=== PATIENT | female | born 1985 | race Hispanic/Latino ===

== ENCOUNTER → 2023-08-14 10:22 | Outpatient (REF) | payer OTHER, SELFPAY ==
[2023-08-14 11:14] LABS: Hematocrit 34.6 % (37.0-47.0); Hemoglobin 11.9 g/dL (12.0-16.0); Mean Corp Hgb Conc. 34.4 g/dL (33.0-37.0); Mean Corpuscular Hgb 31.2 pg (27.0-31.0); Mean Corpuscular Volume 90.8 fL (81.0-99.0); Mean Platelet Volume 10.5 fL (7.4-10.4); Platelet Count 385 10^3/uL (130-400); Red Blood Cell Count 3.81 10^6/uL (4.20-5.40); Red Cell Dist. Width 13.7 % (11.5-14.5)
[2023-08-14 12:15] LABS: ALT (SGPT) 35 U/L (0-35); AST (SGOT) 37 U/L (14-36); Albumin 4.4 g/dl (3.5-5.0); Alkaline Phosphatase 94 U/L (38-126); Blood Urea Nitrogen 11 mg/dl (7-17); Carbon Dioxide 23 mmol/L (22-30); Chloride 104 mmol/L (98-107); Glucose 81 mg/dl (70-99); Potassium 4.1 mmol/L (3.5-5.1); Sodium 134 mmol/L (135-145); Total Bilirubin 0.6 mg/dl (0.2-1.3); Total Protein 7.4 g/dl (6.3-8.2); eGFR > 60.00
[2023-08-14 12:27] LABS: Free T4 0.61 ng/dl (0.78-2.19); Vitamin D, 25-OH*** 26.6 ng/mL (30-80)
[2023-08-15 16:22] LABS: Thyroid Peroxidase Ab (TPO) 641.2 IU/mL (0.0-9.0)
== END ==
LOC: CLINIC 10:22
PROVIDERS: ATTENDING PHYSICIAN Nurse Practitioner Adult Health
DX: E06.3 Autoimmune thyroiditis (principal); E03.9 Hypothyroidism, unspecified; E55.9 Vitamin D deficiency, unspecified
CPT/HCPCS: 36415; 80053; 82306; 84439; 84443; 85027; 86376

== ENCOUNTER → 2023-11-27 09:49 | Outpatient (REF) | payer OTHER, SELFPAY ==
[2023-11-27 12:23] LABS: Free T4 1.11 ng/dl (0.78-2.19)
[2023-11-27 12:37] LABS: TSH 9.23 uIU/ml (0.47-4.68)
== END ==
LOC: CLINIC 09:49
PROVIDERS: ATTENDING PHYSICIAN Nurse Practitioner Adult Health
DX: E06.3 Autoimmune thyroiditis (principal); E03.9 Hypothyroidism, unspecified
CPT/HCPCS: 36415; 84439; 84443

== ENCOUNTER → 2024-05-15 11:06 | Outpatient (REF) | payer OTHER, SELFPAY ==
[2024-05-15 12:00] LABS: Hematocrit 35.4 % (37.0-47.0); Mean Corp Hgb Conc. 33.9 g/dL (33.0-37.0); Mean Corpuscular Hgb 31.7 pg (27.0-31.0); Mean Corpuscular Volume 93.4 fL (81.0-99.0); Mean Platelet Volume 11.6 fL (7.4-10.4); Platelet Count 316 10^3/uL (130-400); Red Blood Cell Count 3.79 10^6/uL (4.20-5.40); Red Cell Dist. Width 12.7 % (11.5-14.5); White Blood Cell Count 4.7 10^3/uL (4.8-10.8)
[2024-05-15 12:55] LABS: ALT (SGPT) 28 U/L (0-35); AST (SGOT) 39 U/L (14-36); Albumin 4.4 g/dl (3.5-5.0); Alkaline Phosphatase 81 U/L (38-126); Blood Urea Nitrogen 9 mg/dl (7-17); Carbon Dioxide 24 mmol/L (22-30); Chloride 104 mmol/L (98-107); Glucose 90 mg/dl (70-99); Potassium 4.3 mmol/L (3.5-5.1); Sodium 138 mmol/L (135-145); Total Bilirubin 0.6 mg/dl (0.2-1.3); Total Protein 7.5 g/dl (6.3-8.2); eGFR > 60.00
[2024-05-15 12:57] LABS: Free T4 0.67 ng/dl (0.78-2.19); Vitamin D, 25-OH*** 27.6 ng/mL (30-80)
[2024-05-15 14:26] LABS: Vitamin B12 758 pg/ml (239-931)
== END ==
LOC: CLINIC 11:06
PROVIDERS: ATTENDING PHYSICIAN Nurse Practitioner Adult Health
DX: E06.3 Autoimmune thyroiditis (principal); E03.9 Hypothyroidism, unspecified; E55.9 Vitamin D deficiency, unspecified; D64.9 Anemia, unspecified
CPT/HCPCS: 36415; 80053; 82306; 82607; 84439; 84443; 85027

== ENCOUNTER → 2024-08-25 08:12 | Outpatient (REF) | payer OTHER, SELFPAY ==
[2024-08-25 09:06] LABS: Hematocrit 36.4 % (37.0-47.0); Hemoglobin 12.4 g/dL (12.0-16.0); Mean Corp Hgb Conc. 34.1 g/dL (33.0-37.0); Mean Corpuscular Hgb 31.7 pg (27.0-31.0); Mean Corpuscular Volume 93.1 fL (81.0-99.0); Mean Platelet Volume 10.8 fL (7.4-10.4); Platelet Count 353 10^3/uL (130-400); Red Blood Cell Count 3.91 10^6/uL (4.20-5.40); Red Cell Dist. Width 12.9 % (11.5-14.5); White Blood Cell Count 7.5 10^3/uL (4.8-10.8)
[2024-08-25 09:52] LABS: Free T4 1.26 ng/dl (0.78-2.19); Vitamin D, 25-OH*** 61.5 ng/mL (30-80)
[2024-08-25 09:55] LABS: ALT (SGPT) 37 U/L (0-35); AST (SGOT) 33 U/L (14-36); Albumin 4.5 g/dl (3.5-5.0); Alkaline Phosphatase 87 U/L (38-126); Blood Urea Nitrogen 9 mg/dl (7-17); Calcium 9.1 mg/dl (8.4-10.2); Carbon Dioxide 21 mmol/L (22-30); Chloride 107 mmol/L (98-107); Glucose 90 mg/dl (70-99); Potassium 4.3 mmol/L (3.5-5.1); Sodium 141 mmol/L (135-145); Total Bilirubin 0.6 mg/dl (0.2-1.3); Total Protein 7.5 g/dl (6.3-8.2); eGFR > 60.00
[2024-08-25 10:06] LABS: TSH 4.04 uIU/ml (0.47-4.68)
== END ==
LOC: CLINIC 08:12
PROVIDERS: ATTENDING PHYSICIAN Nurse Practitioner Adult Health
DX: E06.3 Autoimmune thyroiditis (principal); E03.9 Hypothyroidism, unspecified; D64.9 Anemia, unspecified
CPT/HCPCS: 36415; 80053; 82306; 84439; 84443; 85027

== ENCOUNTER → 2024-11-28 08:07 | Outpatient (REF) | payer OTHER, SELFPAY ==
[2024-11-28 08:50] LABS: Hematocrit 38.7 % (37.0-47.0); Hemoglobin 12.8 g/dL (12.0-16.0); Mean Corp Hgb Conc. 33.1 g/dL (33.0-37.0); Mean Corpuscular Volume 94.2 fL (81.0-99.0); Platelet Count 415 10^3/uL (130-400); Red Cell Dist. Width 12.8 % (11.5-14.5)
[2024-11-28 09:12] LABS: ALT (SGPT) 97 U/L (0-35); AST (SGOT) 63 U/L (14-36); Albumin 4.9 g/dl (3.5-5.0); Alkaline Phosphatase 132 U/L (38-126); Blood Urea Nitrogen 10 mg/dl (7-17); Calcium 9.5 mg/dl (8.4-10.2); Carbon Dioxide 26 mmol/L (22-30); Chloride 105 mmol/L (98-107); Glucose 87 mg/dl (70-99); Potassium 4.6 mmol/L (3.5-5.1); Sodium 140 mmol/L (135-145); Total Protein 8.4 g/dl (6.3-8.2); eGFR > 60.00
[2024-11-28 09:31] LABS: Vitamin D, 25-OH*** 44.6 ng/mL (30-80)
[2024-11-28 09:44] LABS: TSH 1.93 uIU/ml (0.47-4.68)
[2024-11-28 10:03] LABS: Vitamin B12 728 pg/ml (239-931)
== END ==
LOC: CLINIC 08:07
PROVIDERS: ATTENDING PHYSICIAN Nurse Practitioner Adult Health
DX: E06.3 Autoimmune thyroiditis (principal); E03.9 Hypothyroidism, unspecified; E55.9 Vitamin D deficiency, unspecified; D64.9 Anemia, unspecified; R74.8 Abnormal levels of other serum enzymes
CPT/HCPCS: 36415; 80053; 82306; 82607; 84439; 84443; 85027

== ENCOUNTER → 2025-02-28 07:48 | Outpatient (REF) | payer OTHER, SELFPAY ==
[2025-02-28 08:55] LABS: ALT (SGPT) 38 U/L (0-35); AST (SGOT) 43 U/L (14-36); Albumin 4.3 g/dl (3.5-5.0); Alkaline Phosphatase 85 U/L (38-126); Blood Urea Nitrogen 10 mg/dl (7-17); Calcium 9.0 mg/dl (8.4-10.2); Carbon Dioxide 25 mmol/L (22-30); Chloride 105 mmol/L (98-107); Glucose 91 mg/dl (70-99); Potassium 4.2 mmol/L (3.5-5.1); Sodium 139 mmol/L (135-145); Total Protein 7.4 g/dl (6.3-8.2); eGFR > 60.00
[2025-02-28 18:56] LABS: Hepatitis B Surface Antigen Negative (Negative)
[2025-02-28 19:14] LABS: Hepatitis A Antibody, Total Positive (Negative); Hepatitis C Antibody Negative (Negative)
== END ==
LOC: REG 07:48
PROVIDERS: ATTENDING PHYSICIAN Nurse Practitioner Adult Health
DX: R74.8 Abnormal levels of other serum enzymes (principal)
CPT/HCPCS: 36415; 80053; 86704; 86706; 86708; 86803; 87340

== ENCOUNTER → 2025-03-25 14:59 | Outpatient (REF) | payer OTHER, SELFPAY | LOC: CLINIC 14:59 | PROVIDERS: ATTENDING PHYSICIAN Nurse Practitioner Adult Health | DX: Z12.4 Encounter for screening for malignant neoplasm of cervix (principal) | CPT/HCPCS: 87624 ==